=== PATIENT | male | born 1975 | race Caucasian/White ===

== ENCOUNTER → 2016-11-12 | Outpatient (CLI) | payer OTHER ==
--- NOTE | 2016-11-12 14:02 | EKG ---
[address] [place] [address] [place] [address] Measurements Intervals [place] Rate: 65 P: 59 TX: 156 QRS: 43 QRSD: 106 T: 51 QT: 408 QTc: 419 Interpretive Statements SINUS RHYTHM NORMAL SEPTAL inferior Q-waves versus POSSIBLE INFERIOR MYOCARDIAL INFARCTION [30 ms Q WAVE IN II/aVF], PROBABLY OLD No previous ECG available for comparison Electronically Signed On 11-12-16 15:36:33 MDT by Kota Friedman MD [email or web address]
[2016-11-12 14:07] LABS: BASOPHILS # (AUTO) 0.09 10*3/UL; BASOPHILS % (AUTO) 0.9 % (0-1); EOSINOPHILS # (AUTO) 0.56 10*3/UL; EOSINOPHILS % (AUTO) 5.6 % (0-8); HEMATOCRIT 45.6 % (42.0-52.0); HEMOGLOBIN 16.1 g/dL (14.0-18.0); LYMPHOCYTES # (AUTO) 2.64 10*3/uL; MEAN CORPUSCULAR HGB CONC 35.3 g/dL (33-37); MEAN PLATELET VOLUME 9.8 FL (7.4-12.2); MONOCYTES # (AUTO) 0.73 10*3/UL (0.3-0.8); MONOCYTES % (AUTO) 7.3 % (5-15); NEUTROPHILS # (AUTO) 6.01 10*3/UL; NEUTROPHILS % (AUTO) 59.7 % (50-80); RED BLOOD COUNT 5.56 10^6/uL (4.70-6.10)
[2016-11-12 14:11] LABS: PLATELET MORPHOLOGY COMMENT NORMAL MORPHOLOGY (NORM); RBC MORPHOLOGY COMMENT NORMAL MORPHOLOGY (NORM); WBC MORPHOLOGY COMMENT NORMAL MORPHOLOGY (NORM)
[2016-11-12 14:18] LABS: BLOOD UREA NITROGEN 12 mg/dL (7-22); CALCIUM 8.5 mg/dL (8.7-10.7); EST GLOMERULAR FILTRATION > 60 (>60 ml/min/1.73m(2)); SERUM ALBUMIN 4.2 g/dL (3.5-4.8)
[2016-11-12 14:39] LABS: FREE T4 (FREE THYROXINE) 1.01 ng/dL (0.93-1.71)
== END ==
LOC: MOB LAB 13:38
PROVIDERS: ATTEND Physician Assistant
DX: R42 Dizziness and giddiness (principal); R51 Headache; R73.09 Other abnormal glucose; F17.200 Nicotine dependence, unspecified, uncomplicated
CPT/HCPCS: 36415; 80053; 84439; 84443; 85025; 93005; 93010